=== PATIENT | male | born 1960 | race Two or more races ===

== ENCOUNTER 2018-06-24 19:21 | Emergency (ER) | payer OTHER ==
[~2018-06-24] VITALS: Ht 167.6 cm; Wt 54.9 kg
--- NOTE | 2018-06-24 19:32 | NUR ---
SAIDA FROM [facility], PER REPORT PT WAS HAVING "EPISODIC SOB" SENT FOR POSSIBLE RESP INF; FROM [facility] [place]. PT IS NONVERBAL, VSS, ON TRACH. O2 ON 3L, SATTING AT 100%. SKIN WARM, DRY, INTACT. RIGHT ATK AMPUTATION. NO ACUTE SIGNS OF DISTRESS. AWAITING MD ABRAHAM.
--- NOTE | 2018-06-24 19:41 | NUR ---
CALLED [facility], SPOKE TO RHONDA, WILL FAX ALL PAPERWORKS
[2018-06-24 20:36] LABS: BASOPHILS % (AUTO) 0.1 % (0.0-2.0); EOSINOPHILS % (AUTO) 2.2 % (0.0-6.0); HEMATOCRIT 35 % (39-51); HEMOGLOBIN 11.1 g/dL (13.5-17.5); LYMPHOCYTES # (AUTO) 0.5 /CMM (0.8-4.8); LYMPHOCYTES % (AUTO) 5.2 % (20.0-44.0); MEAN CORPUSCULAR HGB CONC 32 g/dl (31.0-36.0); MEAN CORPUSCULAR VOLUME 107 fL (80-96); MONOCYTES # (AUTO) 0.9 /CMM (0.1-1.30); MONOCYTES % (AUTO) 8.7 % (2.0-12.0); NEUTROPHILS # (AUTO) 8.3 /CMM (1.8-8.9); NEUTROPHILS % (AUTO) 83.8 % (43.0-81.0); PLATELET COUNT (AUTO) 191 /CMM (150-450); RED BLOOD CELL COUNT(AUTO) 3.25 MIL/uL (4.5-6.0); WHITE BLOOD COUNT (AUTO) 9.9 K/uL (4.3-11.0)
[2018-06-24 20:50] LABS: CARBON DIOXIDE 24 mmol/L (21-32); CHLORIDE 102 mmol/L (98-107); GLUCOSE 150 mg/dL (74-106); POTASSIUM 2.9 mmol/L (3.5-5.1); SODIUM SERUM 139 mmol/L (136-145); UREA NITROGEN, BLOOD 6 mg/dL (7-18)
[2018-06-24 20:57] LABS: ALANINE AMINOTRANSFERASE 39 U/L (12-78); ALBUMIN 2.1 g/dL (3.4-5.0); ALKALINE PHOSPHATASE 452 U/L (46-116); ASPARTATE AMINOTRANSFERASE 27 U/L (15-37); BILIRUBIN,DIRECT 0.1 mg/dL (0.0-0.2); BILIRUBIN,TOTAL 0.4 mg/dL (0.2-1.0); LIPASE 126 U/L (73-393)
--- NOTE | 2018-06-24 21:05 | NUR ---
BED LOW, RAILS UP, PT MADE COMFORTABLE POSSIBLE
--- NOTE | 2018-06-24 21:19 | NUR ---
CALLED [facility] TO ARRANGE A BLS TRANSPORT BACK TO [facility]. WAS GIVEN A MANAGER DEMAND TIME OF [id number] TRIP#: [id number]
[2018-06-24] MEDS ORDERED: POTASSIUM CHLORIDE 20 MEQ TAB.PRT.SR PO ONE (21:30)
--- NOTE | 2018-06-24 22:17 | NUR ---
VERBAL ORDERS PER DR POON FOR POTASSIUM CL PKT [id number]
[2018-06-24] MEDS ORDERED: POTASSIUM CHLORIDE 20 MEQ POWDER PACKET ONE (22:19)
[2018-06-24] MEDS ORDERED: POTASSIUM CHLORIDE 20 MEQ POWDER PACKET GT ONE (22:30)
--- NOTE | 2018-06-24 22:40 | NUR ---
MEDICATION GIVEN VIA GTUBE. PT KARLO WELL
--- NOTE | 2018-06-24 22:56 | NUR ---
Patient is resting comfortably in bed with eyes closed. Easily aroused. VSS
--- NOTE | 2018-06-24 23:51 | NUR ---
REPORT GIVEN TO GLORIA SHIPLEY AT [facility] AND [facility]
--- NOTE | 2018-06-24 23:55 | NUR ---
IV removed. Catheter intact and site benign. Pressure and 4x4 applied to site. No bleeding noted.
--- NOTE | 2018-06-25 00:23 | NUR ---
[facility] REFUSED TO TRANSPORT DUE TO PROTOCOL FOR RR > 24. WILL CALL FOR [facility] TRANSPORT
--- NOTE | 2018-06-25 01:30 | NUR ---
PT RESTING COMFORTABLY, NO SIGNS OF DISTRESS
--- NOTE | 2018-06-25 02:56 | NUR ---
SUCTIONED PT AND TUBING. PT IS RESTING, NO SIGNS OF ACUTE DISTRESS. VSS.
--- NOTE | 2018-06-25 03:55 | NUR ---
CALLED [facility] FOR BLS TRANSPORT BACK TO [facility]. ETA OF 8043 TRIP#: [id number]
--- NOTE | 2018-06-25 04:32 | NUR ---
REPORT GIVEN TO [facility]
[2018-06-25 04:47] VITALS: BP 119/74
== END 2018-06-25 04:52 ==
LOC: ER 19:27
DX: G93.40 Encephalopathy, unspecified (principal); I12.0 Hypertensive chronic kidney disease with stage 5 chronic kidney disease or end stage renal disease; E11.22 Type 2 diabetes mellitus with diabetic chronic kidney disease; N18.6 End stage renal disease; E87.6 Hypokalemia; J06.9 Acute upper respiratory infection, unspecified; I73.9 Peripheral vascular disease, unspecified; I48.91 Unspecified atrial fibrillation; I25.2 Old myocardial infarction; J44.9 Chronic obstructive pulmonary disease, unspecified; J96.10 Chronic respiratory failure, unspecified whether with hypoxia or hypercapnia; K21.9 Gastro-esophageal reflux disease without esophagitis; D64.9 Anemia, unspecified; Z86.73 Personal history of transient ischemic attack (TIA), and cerebral infarction without residual deficits; Z99.2 Dependence on renal dialysis; Z89.611 Acquired absence of right leg above knee; Z98.890 Other specified postprocedural states; Z88.6 Allergy status to analgesic agent; Z87.01 Personal history of pneumonia (recurrent)
CPT/HCPCS: 36415; 71045; 80048; 80076; 83690; 84484; 85025; 85730; 87040; 87081; 87804 ×2; 93005; 99284; A4606; Z7610; 87400

== ENCOUNTER 2018-08-26 16:42 | Inpatient (IN) | payer OTHER ==
[~2018-08-26] VITALS: Ht 162.6 cm; Wt 59.0 kg
--- NOTE | 2018-08-26 16:42 | NUR ---
SAIDA FROM [facility] C/O LOW BP, DIALYZED FOR 1HR OUT OF 3 HRS BP=84/62 POWER CHISEL OPERATOR, TO ER BED 4, HOOKED TO MONITOR, CHANGED TO RT TIMO AT BEDSIDE, DR POON AT BEDSIDE
[2018-08-26] MEDS ORDERED: IV NS 0.9% 500 ML BAG IV ONE (17:00)
[2018-08-26 17:04] VITALS: BP 107/72
--- NOTE | 2018-08-26 17:09 | NUR ---
[facility] SIZE 8 PORTEX WITH PARAMETERS BELOW PER RT TRANSPORTER: AC 10 VT 500 FIO2 40% PEEP +5 VENT PLUGGED INTO RED OUTLET WITH ALARMS ON AND FUNCTIONING. BREATH SOUNDS CLEAR BILATERAL. AMBU BAG + SPARE TRACH @ BEDSIDE. Addendum: 08/26/18 at 1712 by LOUIS BECK RT Amended: Links added.
[2018-08-26 17:14] LABS: BASOPHILS % (AUTO) 0.2 % (0.0-2.0); EOSINOPHILS % (AUTO) 0.1 % (0.0-6.0); HEMATOCRIT 43 % (39-51); HEMOGLOBIN 13.4 g/dL (13.5-17.5); LYMPHOCYTES # (AUTO) 0.9 /CMM (0.8-4.8); LYMPHOCYTES % (AUTO) 4.3 % (20.0-44.0); MEAN CORPUSCULAR HGB CONC 31 g/dl (31.0-36.0); MEAN CORPUSCULAR VOLUME 106 fL (80-96); MONOCYTES # (AUTO) 2.2 /CMM (0.1-1.30); MONOCYTES % (AUTO) 10.6 % (2.0-12.0); NEUTROPHILS # (AUTO) 17.8 /CMM (1.8-8.9); NEUTROPHILS % (AUTO) 84.8 % (43.0-81.0); PLATELET COUNT (AUTO) 365 /CMM (150-450); RED BLOOD CELL COUNT(AUTO) 4.06 MIL/uL (4.5-6.0)
[2018-08-26 17:50] LABS: ALANINE AMINOTRANSFERASE 24 U/L (12-78); ALBUMIN 2.4 g/dL (3.4-5.0); ALKALINE PHOSPHATASE 329 U/L (46-116); ASPARTATE AMINOTRANSFERASE 22 U/L (15-37); BILIRUBIN,DIRECT 0.1 mg/dL (0.0-0.2); BILIRUBIN,TOTAL 0.3 mg/dL (0.2-1.0); CALCIUM, SERUM 9.1 mg/dL (8.5-10.1); CARBON DIOXIDE 21 mmol/L (21-32); CHLORIDE 99 mmol/L (98-107); CREATININE 3.3 mg/dL (0.6-1.3); LIPASE 101 U/L (73-393); POTASSIUM 3.4 mmol/L (3.5-5.1); SODIUM SERUM 135 mmol/L (136-145); TOTAL PROTEIN, SERUM 7.5 g/dL (6.4-8.2); UREA NITROGEN, BLOOD 79 mg/dL (7-18)
[2018-08-26 17:52] LABS: GLUCOSE 428 mg/dL (74-106)
[2018-08-26] MEDS ORDERED: INSULIN ASPART/LISPRO 100 UNIT/ML CARTRIDGE SQ STA ×2 (17:52→18:27)
[2018-08-26] MEDS ORDERED: PIPERACILLIN /TAZOBACTAM 3.375 G in IV D5W 50 ML IV ONE (18:00)
[2018-08-26 18:07] LABS: LYMPHOCYTES % (MANUAL) 14 % (16-48); MONOCYTES % (MANUAL) 10 % (0-11.0); NEUTROPHILS % (MANUAL) 76 (42-76)
--- NOTE | 2018-08-26 18:25 | NUR ---
RECHECKED TK=[id number], MADE MD AWARE, RECEIVED VERBAL ORDER OF HUMALOG 10UNITS.
--- NOTE | 2018-08-26 19:01 | NUR ---
RECHECKED DM=727, ERROR OF ACCEPTING RESULT, RECHECKED BS RIGHT AFTER WITH RESULT OF 362. MADE MD AWARE.
[2018-08-26 19:12] VITALS: BP 103/68
[2018-08-26] MEDS ORDERED: ASCO500T10 GT (19:19)
[2018-08-26] MEDS ORDERED: HYDR-4384 GT (19:19)
[2018-08-26] MEDS ORDERED: ATOR40TA GT (19:19)
[2018-08-26] MEDS ORDERED: NA P133E RC (19:19)
[2018-08-26] MEDS ORDERED: FERR220S18 GT (19:19)
[2018-08-26] MEDS ORDERED: ACET325T53 GT (19:19)
[2018-08-26] MEDS ORDERED: MAGN2400 GT (19:19)
[2018-08-26] MEDS ORDERED: OMEP40CA37 GT (19:19)
[2018-08-26] MEDS ORDERED: LEVE100S2 GT (19:19)
[2018-08-26] MEDS ORDERED: METO50TA16 GT (19:19)
[2018-08-26] MEDS ORDERED: INSU100V10 SQ (19:19)
[2018-08-26] MEDS ORDERED: BACI1TAB3 GT (19:19)
[2018-08-26] MEDS ORDERED: LOSA25TA27 GT (19:19)
[2018-08-26] MEDS ORDERED: AMLO5TAB9 GT (19:19)
[2018-08-26] MEDS ORDERED: LEVO100T9 GT (19:19)
[2018-08-26] MEDS ORDERED: FOLI0.8T2 GT (19:19)
[2018-08-26] MEDS ORDERED: INSU100V27 SQ (19:19)
[2018-08-26] MEDS ORDERED: BISA10SU61 RC (19:19)
[2018-08-26] MEDS ORDERED: CHLO473M3 MM (19:19)
[2018-08-26] MEDS ORDERED: CLON0.1T GT (19:19)
[2018-08-26] MEDS ORDERED: ONDA4TAB10 GT (19:19)
[2018-08-26] MEDS ORDERED: ZINC220C8 GT (19:20)
[2018-08-26] MEDS ORDERED: Z GUARD REMEDY 2 OZ OINT TP PRN (19:30)
[2018-08-26] MEDS ORDERED: ACETAMINOPHEN 325 MG TABLET PO PRN (19:30)
[2018-08-26] MEDS ORDERED: ONDANSETRON HCL/PF 4 MG/2 ML VIAL IVP PRN (19:30)
[2018-08-26] MEDS ORDERED: HYDROCODONE/APAP 5/325MG 1 EACH TABLET PO PRN (19:30)
[2018-08-26] MEDS ORDERED: MAG HYDROX/AL HYDROX/SIMETH 30 ML UDC PO PRN (19:30)
[2018-08-26] MEDS ORDERED: IV D5/ 0.9% NACL 1,000 ML IV PRN (19:30)
[2018-08-26] MEDS ORDERED: DEXTROSE 50%-WATER 50 ML DISP.SYRIN IV PRN (19:30)
[2018-08-26] MEDS ORDERED: MAGNESIUM HYDROXIDE 30 ML UDC PO PRN (19:30)
--- NOTE | 2018-08-26 19:30 | NUR ---
REPORT GIVEN TO AUSTEN CASTRO FOR RIVERA
--- NOTE | 2018-08-26 19:59 | NUR ---
Report given to MARIELENA Tamayo RN for RIVERA.
[2018-08-26] MEDS ORDERED: VANCOMYCIN 500 MG in IV D5W 100 ML IV PRN (20:00)
[2018-08-26] MEDS ORDERED: FEE PK DOSING 1 MIN EA MC ONE (20:12)
[2018-08-26] MEDS ORDERED: INSULIN DETEMIR 100 UNIT/ML CARTRIDGE SQ SCH (21:00)
[2018-08-26] MEDS ORDERED: VANCOMYCIN 1 GM in IV D5W 250 ML IV ONE (21:00)
[2018-08-26 21:40] VITALS: BP 106/69
--- NOTE | 2018-08-26 21:40 | NUR ---
NEGATIVE NOTCHERINJURY PREVENTION COORDINATOR NOTES Received patient 58-year-old male from ER via gurney assisted by 3 check scaler and 1 RT. Admitted to Tele 324-2 under the service of Dr. Michael Campos due to low bp. Patient is alert, non verbal. On Vent AC 10 TV 500 FiO2 40% PEEP 5, saturating 100% no SOB/respiratory distress noted. On tele monitor with sinus tach 107. No discomfort noted at this time. Admission routine done. Skin assessment done, photo taken and documented. Patient no belongings noted. Kept on bed clean, dry and comfortable. Kept bed low, locked, siderails up X 3. Admission ordered noted, and carried out. Will continue to monitor accordingly.
[2018-08-26 22:15] VITALS: BP 106/69
[2018-08-26] MEDS: LEVETIRACETAM SOL (5 ML) 100 MG/ML UDC GT SCH (22:52)
[2018-08-26] MEDS: ATORVASTATIN 40 MG TABLET GT SCH (22:52)
[2018-08-26] MEDS: INSULIN GLARGINE, 100 UNIT/ML CARTRIDGE SQ SCH (22:54)
--- NOTE | 2018-08-26 23:00 | NUR ---
MOLDING ASSOCIATE NOTES 2139 PATIENT NOTED WITH SMALL BLACK VOMITUS. SUCTIONED PRN. KEPT PATIENT CLEAN. KEPT HOB ELEVATED. NO FURTHER VOMITING NOTED. PATIENT REMAINED STABLE AT THIS TIME.
[2018-08-26] MEDS: ZOLPIDEM TARTRATE 5 MG TABLET PO PRN (23:03)
[2018-08-27] VITALS (7 sets, daily range): BP systolic 100–144; BP diastolic 69–87
[2018-08-27] MEDS ORDERED: NEPRO 1,000 ML BOTTLE GT SCH (00:30)
[2018-08-27] MEDS: BLOOD SUGAR DIAGNOSTIC 1 EACH STRIP IN SCH ×5 (00:32→23:53)
[2018-08-27] MEDS: INSULIN REGULAR, HUMAN 100 UNIT/ML 3 ML VIAL SQ PRN ×5 (01:18→23:58)
[2018-08-27] MEDS: IV NS 0.9% 1,000 ML IV PRN ×2 (01:28→17:32)
[2018-08-27] MEDS: PIPERACILLIN /TAZOBACTAM 2.25 G in IV D5W 50 ML IV SCH ×3 (01:30→17:25)
--- NOTE | 2018-08-27 01:32 | NUR ---
BANDING MACHINE OPERATOR NOTES Checked blood sugar, repeated twice, 449. Notified MD Taz You with orders noted and carried out. Will continue to monitor patient accordingly.
[2018-08-27 06:17] LABS: BASOPHILS % (AUTO) 0.4 % (0.0-2.0); EOSINOPHILS % (AUTO) 0.4 % (0.0-6.0); HEMATOCRIT 35 % (39-51); HEMOGLOBIN 11.1 g/dL (13.5-17.5); LYMPHOCYTES # (AUTO) 0.9 /CMM (0.8-4.8); MEAN CORPUSCULAR HGB CONC 31 g/dl (31.0-36.0); MEAN CORPUSCULAR VOLUME 104 fL (80-96); MONOCYTES # (AUTO) 1.6 /CMM (0.1-1.30); MONOCYTES % (AUTO) 12.7 % (2.0-12.0); NEUTROPHILS # (AUTO) 10.2 /CMM (1.8-8.9); NEUTROPHILS % (AUTO) 79.5 % (43.0-81.0); PLATELET COUNT (AUTO) 284 /CMM (150-450); RED BLOOD CELL COUNT(AUTO) 3.38 MIL/uL (4.5-6.0); WHITE BLOOD COUNT (AUTO) 12.9 K/uL (4.3-11.0)
[2018-08-27 06:30] LABS: THYROID STIMULATING HORMONE 0.946 uIU/mL (0.358-3.74)
[2018-08-27 06:31] LABS: CALCIUM, SERUM 8.6 mg/dL (8.5-10.1); MAGNESIUM 2.1 mg/dL (1.8-2.4); PHOSPHORUS 3.3 mg/dL (2.5-4.9); POTASSIUM 3.3 mmol/L (3.5-5.1)
--- NOTE | 2018-08-27 07:13 | NUR ---
SULFATE DRIER MACHINE OPERATOR CLOSING NOTES Patient intermittently asleep on Castano's position on bed. On Vent, tolerating well, no SOB/respiratory distress noted. Suctioned regularly and PRN, scant thick yellow secretions noted on the trach, black/dark green on the mouth and oozing on the trach site. With patent peripheral IV line RFA G#20 with NS infusing well as ordered. With BUN of 106 as notified by lab. Patient for nepro consult today. 0600am BS 354 - 15units insulin given per sliding scale as ordered. Patient remained stable. No further episode of vomiting noted. All due meds given as ordered. All nursing needs attended. Kept on bed clean, dry and comfortable. Call light at bedside. Endorsed to the next shift.
--- NOTE | 2018-08-27 07:30 | NUR ---
LINE THERAPIST. PT RECEIVED EYES OPEN TO LITE PAIN. PT WITH TRACH AND VENT, TOLERATING WELL WITHOUT DISTRESS, VENT PLUGGED TO RED PLUG AND AMBU BACK AT BEDSIDE, ALARMS ON, SETTINGS RV WITH RT AND PT SUCTIONED. PT WITHOUT OBVIOUS DISTRESS OR DISCOMFORT. PT SKIN MOIST. PT REPOSITIONED AND OFFLOADED. PT WITH IVC AT R FA INTACT AND OPERATIONAL. G TUBE INTACT AND OPERATIONAL WITH GTF PER RX, <5CC RESIDUALS. PT BED IN LOWEST LOCKED POSITION WITH HANDRAILSX4 AND HOB ELEVATED. WILL CONTINUE POC.
--- NOTE | 2018-08-27 07:40 | NUR ---
RT Pt received with a Portex 8 trach on the vent with noted settings. Pt is awake but does not follow commands. Vent alarms are set and audible with BVM by bedside. PATENT CLERK cuff pressure noted. Vent is plugged into red outlet. Sx'd moderate thick pale yellow secretions. No respiratory distress noted at this time, will continue to monitor. Addendum: 08/27/18 at 1204 by DENIS DELUNA RT Amended: Links added.
--- NOTE | 2018-08-27 08:30 | NUR ---
PT WITH EPISODE OF DARK GREEN/BLACK VOMITUS FROM AROUND TRACH TUBE AT NECK. PT TRACH SUCTIONED WITH SMALL AMOUNT FROTHY WHITE SECRETIONS. ORAL CARE COMPLETED. HOB ELEVATED. RT ASSESSED AND NAD.
[2018-08-27] MEDS: ASCORBIC ACID 500 MG TABLET GT SCH (09:18)
[2018-08-27] MEDS: LEVOTHYROXINE SODIUM 100 MCG TABLET GT SCH (09:19)
[2018-08-27] MEDS: PANTOPRAZOLE 40 MG TABLET.DR PO SCH (09:19)
[2018-08-27] MEDS: LEVETIRACETAM SOL (5 ML) 100 MG/ML UDC GT SCH ×2 (09:19→21:04)
[2018-08-27] MEDS: INSULIN GLARGINE, 100 UNIT/ML CARTRIDGE SQ SCH ×2 (09:37→21:08)
--- NOTE | 2018-08-27 16:45 | NUR ---
COMPUTER NETWORKING INSTRUCTOR ADJUNCT. PT WITH 1X LARGE, LOOSE JET BLACK STOOL. MD JOHNSON NOTIFIED, STAT CBC REQUESTED AND OB STOOL.ORDERS PLACED.
[2018-08-27] MEDS: LACTOBACILLUS RHAMNOSUS GG 1 EACH CAP.SPRINK GT SCH (17:25)
[2018-08-27 17:45] LABS: BASOPHILS # (AUTO) 0.1 /CMM (0.0-0.2); BASOPHILS % (AUTO) 0.8 % (0.0-2.0); EOSINOPHILS % (AUTO) 0.9 % (0.0-6.0); HEMATOCRIT 34 % (39-51); HEMOGLOBIN 11.1 g/dL (13.5-17.5); LYMPHOCYTES % (AUTO) 8.6 % (20.0-44.0); MEAN CORPUSCULAR HGB CONC 32 g/dl (31.0-36.0); MEAN CORPUSCULAR VOLUME 104 fL (80-96); MONOCYTES # (AUTO) 1.7 /CMM (0.1-1.30); NEUTROPHILS # (AUTO) 9.1 /CMM (1.8-8.9); NEUTROPHILS % (AUTO) 75.7 % (43.0-81.0); PLATELET COUNT (AUTO) 244 /CMM (150-450); RED BLOOD CELL COUNT(AUTO) 3.32 MIL/uL (4.5-6.0)
--- NOTE | 2018-08-27 18:27 | NUR ---
NUISANCE ANIMAL DAMAGE CONTROL AGENT. TELE SR 92. PT REMAINS OBTUNDED, TRACH AND VENT DEPENDENT AND TOLERATING WELL WITHOUT DISTRESS, VENT PLUGGED TO RED PLUG AND AMBU BACK AT BEDSIDE, ALARMS ON. PT WITHOUT OBVIOUS DISTRESS OR DISCOMFORT. PT REPOSITIONED AND OFFLOADED Q2HR OR SOONER DURING SHIFT. PT WITH IVC AT R FA INTACT AND OPERATIONAL. G TUBE INTACT AND OPERATIONAL WITH GTF HELD AT THIS TIME PER RX, <5CC RESIDUALS DURING SHIFT. PT BED IN LOWEST LOCKED POSITION WITH HANDRAILSX4 AND HOB ELEVATED. WILL ENDORSE TO NIGHT NURSE AT BEDSIDE FOR RIVERA.
--- NOTE | 2018-08-27 19:10 | NUR ---
ACCOUNTING CONSULTANT OPENING NOTES PATIENT RECEIVED IN BED, OBTUNDED, TRACH AND VENT DEPENDENT AND TOLERATING WELL WITHOUT DISTRESS, VENT PLUGGED TO RED PLUG AND AMBU BACK AT BEDSIDE, ALARMS ON. PATIENT WITHOUT OBVIOUS DISTRESS OR DISCOMFORT. VENT SETTINGS: AC- 10, TV- 500, FiO2-30%, PEEP- 5. G TUBE HELD AT THIS TIME, FEEDING WILL BE STARTED AT 12AM. SAFETY MEASURES IN PLACE; BED IN LOWEST LOCKED POSITION WITH HANDRAILSX4 AND HOB ELEVATED. PATIENT STABLE ENDORSED BY THE MORNING RN. WILL CONTINUE TO MONITOR ACCORDINGLY
[2018-08-27 19:32] LABS: OCCULT BLOOD STOOL POSITIVE (NEGATIVE)
[2018-08-27] MEDS: ATORVASTATIN 40 MG TABLET GT SCH (21:04)
[2018-08-27] MEDS: ZOLPIDEM TARTRATE 5 MG TABLET PO PRN (23:20)
[2018-08-27] MEDS: NEPRO 1,000 ML BOTTLE GT SCH (23:53)
[2018-08-28] VITALS (9 sets, daily range): BP systolic 127–152; BP diastolic 74–81
--- NOTE | 2018-08-28 01:15 | NUR ---
COAT FINISHER NOTES Patient moved his bowels, medium, black stool. Wound care done.
[2018-08-28] MEDS: PIPERACILLIN /TAZOBACTAM 2.25 G in IV D5W 50 ML IV SCH ×3 (01:30→17:41)
--- NOTE | 2018-08-28 02:00 | NUR ---
PULP GRINDER NOTES Residuals checked- 0 mL
--- NOTE | 2018-08-28 05:35 | NUR ---
COMMUNICATIONS INSTRUCTOR NOTES Patient moved his bowels, small, jet black stool.
[2018-08-28] MEDS: BLOOD SUGAR DIAGNOSTIC 1 EACH STRIP IN SCH ×3 (05:54→17:23)
[2018-08-28] MEDS: INSULIN REGULAR, HUMAN 100 UNIT/ML 3 ML VIAL SQ PRN ×3 (05:59→17:24)
--- NOTE | 2018-08-28 06:57 | NUR ---
CODE ENFORCEMENT SUPERVISOR CLOSING NOTES PATIENT IN BED, OBTUNDED, TRACH AND VENT DEPENDENT AND TOLERATING WELL WITHOUT DISTRESS. VENT PLUGGED TO RED PLUG AND AMBU BACK AT BEDSIDE, ALARMS ON. PATIENT WITHOUT OBVIOUS DISTRESS OR DISCOMFORT. VENT SETTINGS: AC- 10, TV- 500, FiO2-30%, PEEP- 5. G-TUBE RUNNING AT 55ML/HR, TOLERATING WELL WITH NO RESIDUALS. TELE MONITOR IN PLACE, CURRENT READING SINUS RHYTHM 85. SAFETY MEASURES IN PLACE; BED IN LOWEST LOCKED POSITION WITH HANDRAILSX4 AND HOB ELEVATED. WILL ENDORSE RIVERA TO ONCOMING RN
[2018-08-28 07:05] LABS: BASOPHILS # (AUTO) 0.1 /CMM (0.0-0.2); BASOPHILS % (AUTO) 0.6 % (0.0-2.0); EOSINOPHILS % (AUTO) 1.6 % (0.0-6.0); HEMATOCRIT 35 % (39-51); HEMOGLOBIN 11.4 g/dL (13.5-17.5); LYMPHOCYTES % (AUTO) 11.2 % (20.0-44.0); MEAN CORPUSCULAR HGB CONC 32 g/dl (31.0-36.0); MEAN CORPUSCULAR VOLUME 105 fL (80-96); MONOCYTES # (AUTO) 1.3 /CMM (0.1-1.30); MONOCYTES % (AUTO) 14.4 % (2.0-12.0); NEUTROPHILS # (AUTO) 6.7 /CMM (1.8-8.9); NEUTROPHILS % (AUTO) 72.2 % (43.0-81.0); PLATELET COUNT (AUTO) 213 /CMM (150-450); RED BLOOD CELL COUNT(AUTO) 3.38 MIL/uL (4.5-6.0); WHITE BLOOD COUNT (AUTO) 9.3 K/uL (4.3-11.0)
[2018-08-28] MEDS: IV NS 0.9% 1,000 ML IV PRN (07:22)
[2018-08-28 07:41] LABS: CALCIUM, SERUM 8.8 mg/dL (8.5-10.1); CREATININE 2.7 mg/dL (0.6-1.3)
--- NOTE | 2018-08-28 07:43 | NUR ---
PSYCHIATRIC SECRETARY NOTES PATIENT RECEIVED RESTING INSIDE ROOM. OBTUNDED. ON VENT/TRACH. VENT PLUGGED TO RED OUTLET. NO ACUTE DISTRESS NOTED AT THIS TIME. PATIENT CALM AND RELAXED. NO FACIAL GRIMACE NOTED. ONGOING GTF. MAINTAINED ASPIRATION PRECAUTION, MAINTAINED HOB ELEVATION AT 45. CONTINUE WITH TELEMETRY, NSR 87. WILL CONTINUE TO MONITOR. BED LOCKED AND IN LOW POSITION. BILATERAL UPPER SIDE RAILS UP AND LOCKED. CALL LIGHT WITHIN EASY REACH
[2018-08-28] MEDS: LACTOBACILLUS RHAMNOSUS GG 1 EACH CAP.SPRINK GT SCH ×2 (08:58→16:05)
[2018-08-28] MEDS: PANTOPRAZOLE 40 MG TABLET.DR PO SCH (08:59)
[2018-08-28] MEDS: LEVOTHYROXINE SODIUM 100 MCG TABLET GT SCH (08:59)
[2018-08-28] MEDS: ASCORBIC ACID 500 MG TABLET GT SCH (08:59)
[2018-08-28] MEDS: LEVETIRACETAM SOL (5 ML) 100 MG/ML UDC GT SCH ×2 (09:00→21:28)
[2018-08-28] MEDS: INSULIN GLARGINE, 100 UNIT/ML CARTRIDGE SQ SCH ×2 (09:22→21:33)
[2018-08-28] MEDS ORDERED: POTASSIUM CHLORIDE 20 MEQ TAB.PRT.SR PO ONE (12:00)
--- NOTE | 2018-08-28 14:11 | NUR ---
RT Pt received with a Portex 8 trach on the vent with noted settings. Pt is awake but does not follow commands. Vent alarms are set and audible with BVM by bedside. PARTS CLERK PLANT MAINTENANCE cuff pressure noted. Vent is plugged into red outlet. Sx'd moderate thick pale yellow secretions. No respiratory distress noted at this time, will continue to monitor.
--- NOTE | 2018-08-28 15:30 | NUR ---
CLINIC CLERK NOTES S/P HD. 1300 OUT. PATIENT TOLERATED PROCEDURE WELL, NO ACUTE DISTRESS AT THIS TIME. WILL CONTINUE TO MONITOR
[2018-08-28] MEDS ORDERED: VANCOMYCIN 1 GM in IV D5W 250 ML IV ONE (17:00)
--- NOTE | 2018-08-28 18:42 | NUR ---
THEORETICAL PHYSICIST NOTES PATIENT RESTING INSIDE ROOM. OBTUNDED. NO FACIAL GRIMACE OR INDICATION OF PAIN NOTED AT THIS TIME. CONTINUE WITH VENT/TRACH SETTINGS. NO ACUTE DISTRESS AT THIS TIME. IV INTACT AND PATENT. MAINTAINED ASPIRATION PRECAUTIONS. CONTINUE WITH TELEMETRY, DATA COMMUNICATIONS SOFTWARE CONSULTANT IN PLACE. NSR 90'S. PATIENT KEPT CLEAN, DRY AND COMFORTABLE. ALL NURSING NEEDS ATTENDED AND MET. WILL ENDORSE TO INCOMING SHIFT FOR RIVERA. BED LOCKED AND IN LOW POSITION. BILATERAL UPPER SIDE RAILS UP AND LOCKED. CALL LIGHT WITHIN EASY REACH
--- NOTE | 2018-08-28 19:55 | NUR ---
RN NOTES RECEIVED PATIENT IN BED, OBTUNDED. NO FACIAL GRIMACE OR INDICATION OF PAIN NOTED AT THIS TIME. CONTINUE WITH VENT/TRACH SETTINGS TOLERATING WELL SATING 100%. NO ACUTE DISTRESS AT THIS TIME. IV INTACT AND PATENT. ASPIRATION PRECAUTIONS MAINTAINED. CONTINUE WITH TELEMETRY, MOBILE ENGINEER IN PLACE. NSR 90'S. PATIENT KEPT CLEAN, DRY AND COMFORTABLE. ALL SAFETY MEASURES IN PLACED, BED LOCKED AND IN LOW POSITION. BILATERAL UPPER SIDE RAILS UP AND LOCKED. CALL LIGHT WITHIN EASY REACH. WILL CONTINUE TO MONITOR ACCORDINGLY.
--- NOTE | 2018-08-28 20:24 | NUR ---
RT Pt rec'd with a Portex 8 trach on the vent with noted settings. Pt is awake but does not respond to commands. Vent alarms are set and audible with BVM by bedside. APPLICATION OPERATIONS ENGINEER cuff pressure noted. Vent is plugged into red outlet. Sx'd small thick pale yellow secretions. No respiratory distress noted at this time, will continue to monitor. Addendum: 08/28/18 at 2024 by MILY TOBIN RT Amended: Links added.
[2018-08-28] MEDS: ATORVASTATIN 40 MG TABLET GT SCH (22:29)
[2018-08-29] VITALS: BP 149/87
[2018-08-29] MEDS: BLOOD SUGAR DIAGNOSTIC 1 EACH STRIP IN SCH ×5 (00:52→23:59)
[2018-08-29] MEDS: INSULIN REGULAR, HUMAN 100 UNIT/ML 3 ML VIAL SQ PRN ×4 (00:56→23:55)
[2018-08-29] MEDS: NEPRO 1,000 ML BOTTLE GT SCH (01:16)
[2018-08-29] MEDS: PIPERACILLIN /TAZOBACTAM 2.25 G in IV D5W 50 ML IV SCH ×3 (01:22→17:38)
[2018-08-29 04:00] VITALS: BP 146/68
--- NOTE | 2018-08-29 07:00 | NUR ---
RECEIVED PATIENT IN BED, OBTUNDED. NO INDICATION OF PAIN NOTED AT THIS TIME. CONTINUE WITH VENT/TRACH SETTINGS TOLERATING WELL SATING 100%. NO ACUTE DISTRESS AT THIS TIME. IV INTACT AND PATENT. ASPIRATION PRECAUTIONS MAINTAINED. PT ON TELEMETRY, NSR 81'S. ALL SAFETY MEASURES IN PLACED, BED LOCKED AND IN LOW POSITION. BILATERAL UPPER SIDE RAILS UP AND LOCKED. CALL LIGHT WITHIN EASY REACH. WILL CONTINUE TO MONITOR ACCORDINGLY.
--- NOTE | 2018-08-29 07:20 | NUR ---
RN NOTES ALL NEEDS ATTENDED AND MET, KEPT CLEAN DRY AND COMFORTABLE, VENT SETTINGS TOLERATING WELL, ENDORSED TO AM NURSE FOR CONTINUITY OF CARE.
[2018-08-29 08:00] VITALS: BP 153/85
[2018-08-29 08:04] LABS: BASOPHILS # (AUTO) 0.1 /CMM (0.0-0.2); BASOPHILS % (AUTO) 0.5 % (0.0-2.0); EOSINOPHILS % (AUTO) 1.4 % (0.0-6.0); HEMATOCRIT 37 % (39-51); HEMOGLOBIN 11.6 g/dL (13.5-17.5); LYMPHOCYTES # (AUTO) 1.1 /CMM (0.8-4.8); LYMPHOCYTES % (AUTO) 9.4 % (20.0-44.0); MEAN CORPUSCULAR HGB CONC 32 g/dl (31.0-36.0); MEAN CORPUSCULAR VOLUME 105 fL (80-96); MONOCYTES # (AUTO) 1.2 /CMM (0.1-1.30); MONOCYTES % (AUTO) 10.3 % (2.0-12.0); NEUTROPHILS # (AUTO) 8.8 /CMM (1.8-8.9); NEUTROPHILS % (AUTO) 78.4 % (43.0-81.0); RED BLOOD CELL COUNT(AUTO) 3.51 MIL/uL (4.5-6.0); WHITE BLOOD COUNT (AUTO) 11.2 K/uL (4.3-11.0)
[2018-08-29] MEDS: LEVOTHYROXINE SODIUM 100 MCG TABLET GT SCH (08:34)
[2018-08-29] MEDS: ASCORBIC ACID 500 MG TABLET GT SCH (08:34)
[2018-08-29] MEDS: PANTOPRAZOLE 40 MG TABLET.DR PO SCH (08:35)
[2018-08-29] MEDS: LACTOBACILLUS RHAMNOSUS GG 1 EACH CAP.SPRINK GT SCH ×2 (08:35→17:39)
[2018-08-29] MEDS: LEVETIRACETAM SOL (5 ML) 100 MG/ML UDC GT SCH ×2 (08:35→21:31)
[2018-08-29] MEDS: INSULIN GLARGINE, 100 UNIT/ML CARTRIDGE SQ SCH ×2 (08:37→21:41)
[2018-08-29 08:49] LABS: PLATELET COUNT (AUTO) 210 /CMM (150-450)
[2018-08-29 10:35] LABS: CALCIUM, SERUM 8.8 mg/dL (8.5-10.1); CREATININE 2.4 mg/dL (0.6-1.3); POTASSIUM 3.4 mmol/L (3.5-5.1)
--- NOTE | 2018-08-29 12:09 | NUR ---
PT REC'D ON [facility] VENT ON NOTED SETTINGS CHARTED. NO RESP DISTRESS OR SOB NOTED. TRACH PATENT AND SECURED. SX'D FOR THICK MOD AMT OF PALE YELLOW SECRETIONS. ALARMS ARE SET AND AUDIBLE. VENT PLUGGED INTO RED OUTLET. AMBU BAG BEDSIDE. WILL CONTINUE TO MONITOR. Addendum: 08/29/18 at 1211 by LOWELL GARNER RT Amended: Links added.
[2018-08-29 16:00] VITALS: BP 170/89
--- NOTE | 2018-08-29 19:00 | NUR ---
PATIENT IN BED, OBTUNDED. NO INDICATION OF PAIN NOTED AT THIS TIME. CONTINUE WITH VENT/TRACH SETTINGS TOLERATING WELL SATING 100%. NO ACUTE DISTRESS AT THIS TIME. IV INTACT AND PATENT. ASPIRATION PRECAUTIONS MAINTAINED. FEEDING STOPPED AT 1600 ORDERED.ALL NEEDS ATTENDED AND PT KEPT CLEAN AND DRY , WOUND DRESSING CHANGED. ALL SAFETY MEASURES IN PLACED, BED LOCKED AND IN LOW POSITION. BILATERAL UPPER SIDE RAILS UP AND LOCKED. CALL LIGHT WITHIN EASY REACH.
--- NOTE | 2018-08-29 19:55 | NUR ---
RN NOTES RECEIVED PATIENT IN BED, OBTUNDED. NO FACIAL GRIMACE OR INDICATION OF PAIN NOTED AT THIS TIME. CONTINUE WITH VENT/TRACH SETTINGS TOLERATING WELL SATING 100%. NO ACUTE DISTRESS AT THIS TIME. IV INTACT AND PATENT. ASPIRATION PRECAUTIONS MAINTAINED. CONTINUE WITH TELEMETRY, GROUP ROOMS COORDINATOR IN PLACE. NSR 90'S. PATIENT KEPT CLEAN, DRY AND COMFORTABLE. ALL SAFETY MEASURES IN PLACED, BED LOCKED AND IN LOW POSITION. BILATERAL UPPER SIDE RAILS UP AND LOCKED. CALL LIGHT WITHIN EASY REACH. WILL CONTINUE TO MONITOR ACCORDINGLY.
[2018-08-29 20:00] VITALS: BP 166/78
[2018-08-29] MEDS: ATORVASTATIN 40 MG TABLET GT SCH (21:31)
[2018-08-30] VITALS: BP 147/79
[2018-08-30] MEDS: PIPERACILLIN /TAZOBACTAM 2.25 G in IV D5W 50 ML IV SCH ×3 (02:02→17:33)
[2018-08-30 04:00] VITALS: BP 141/77
[2018-08-30 04:14] VITALS: BP 141/77
[2018-08-30] MEDS: BLOOD SUGAR DIAGNOSTIC 1 EACH STRIP IN SCH ×4 (06:04→23:57)
[2018-08-30] MEDS: INSULIN REGULAR, HUMAN 100 UNIT/ML 3 ML VIAL SQ PRN ×2 (06:10→17:39)
--- NOTE | 2018-08-30 07:14 | NUR ---
RN NOTES ALL NEEDS ATTENDED AND MET, KEPT CLEAN DRY AND COMFORTABLE, VENT SETTINGS TOLERATING WELL, ENDORSED TO AM NURSE FOR CONTINUITY OF CARE.
[2018-08-30 08:38] LABS: BASOPHILS % (AUTO) 0.4 % (0.0-2.0); HEMATOCRIT 35 % (39-51); HEMOGLOBIN 11.6 g/dL (13.5-17.5); LYMPHOCYTES # (AUTO) 0.8 /CMM (0.8-4.8); LYMPHOCYTES % (AUTO) 7.4 % (20.0-44.0); MEAN CORPUSCULAR HGB CONC 33 g/dl (31.0-36.0); MEAN CORPUSCULAR VOLUME 104 fL (80-96); MONOCYTES % (AUTO) 9.2 % (2.0-12.0); NEUTROPHILS # (AUTO) 8.5 /CMM (1.8-8.9); WHITE BLOOD COUNT (AUTO) 10.5 K/uL (4.3-11.0)
[2018-08-30] MEDS: LACTOBACILLUS RHAMNOSUS GG 1 EACH CAP.SPRINK GT SCH ×2 (08:58→17:19)
[2018-08-30] MEDS: ASCORBIC ACID 500 MG TABLET GT SCH (08:58)
[2018-08-30] MEDS: LEVETIRACETAM SOL (5 ML) 100 MG/ML UDC GT SCH ×2 (08:58→21:53)
[2018-08-30] MEDS: LEVOTHYROXINE SODIUM 100 MCG TABLET GT SCH (08:58)
[2018-08-30] MEDS: INSULIN GLARGINE, 100 UNIT/ML CARTRIDGE SQ SCH ×2 (08:59→21:58)
[2018-08-30] MEDS: PANTOPRAZOLE 40 MG TABLET.DR PO SCH (09:01)
[2018-08-30 09:09] LABS: CALCIUM, SERUM 8.8 mg/dL (8.5-10.1); CREATININE 2.7 mg/dL (0.6-1.3); POTASSIUM 3.2 mmol/L (3.5-5.1)
[2018-08-30 09:58] LABS: PLATELET COUNT (AUTO) 168 /CMM (150-450)
--- NOTE | 2018-08-30 13:30 | NUR ---
CALLED TO FACILITY FOR REPORT. GLORIA LOPEZ REFUSED TO TAKE A REPORT , STATED THAT FACILITY DID NOT EXPEKT THIS PATIENT TODAY.
--- NOTE | 2018-08-30 13:40 | NUR ---
CALL TO [employer] STEAM PLANT CONTROL ROOM OPERATOR TO INFORM FACILITY CANNOT ACCEPT THE PT TODAY.
[2018-08-30 16:09] VITALS: BP 153/76
--- NOTE | 2018-08-30 19:24 | NUR ---
NO CHANGES DURING THE SHIFT. PT READY FOR D/C , WILL ENDORSE TO NEXT SHIFT FOR RIVERA.
--- NOTE | 2018-08-30 19:35 | NUR ---
RN NOTES RECEIVED PATIENT IN BED, OBTUNDED. NO FACIAL GRIMACE OR INDICATION OF PAIN NOTED AT THIS TIME. CONTINUE WITH VENT/TRACH SETTINGS TOLERATING WELL SATING 100%. NO ACUTE DISTRESS AT THIS TIME. IV INTACT AND PATENT. ASPIRATION PRECAUTIONS MAINTAINED. CONTINUE WITH TELEMETRY, EXCELSIOR MACHINE FEEDER IN PLACE. NSR 90'S. PATIENT KEPT CLEAN, DRY AND COMFORTABLE. ALL SAFETY MEASURES IN PLACED, BED LOCKED AND IN LOW POSITION. BILATERAL UPPER SIDE RAILS UP AND LOCKED. CALL LIGHT WITHIN EASY REACH. WILL CONTINUE TO MONITOR ACCORDINGLY.
--- NOTE | 2018-08-30 19:47 | NUR ---
RT NOTE PATIENT RECEIVED IN STABLE CONDITION ON MECHANICAL VENT. PATIENT IS TOLERATING CURRENT ORDERED VENT ETTINGS. NO SIGNS OF RESPIRATORY DISTRESS NOTED. TRACH IS PATENT, SECURE AND MIDLINE. MECHANICAL VENT IS PLUGGED INTO RED OUTLET. ALARMS ARE SET AND AUDIBLE. EMERGENCY EQUIPMENT IS AT PATIENT BEDSIDE. WILL CONTINUE TO MONITOR PATIENT Addendum: 08/30/18 at 1948 by KELLEN YEAGER RT Amended: Links added.
[2018-08-30 20:00] VITALS: BP 186/90
--- NOTE | 2018-08-30 20:00 | NUR ---
RN NOTES NOTED ABRASION ON HIS LEFT EAR, PHOTO TAKEN, KEEP AREA CLEAN AND DRY. CONTINUE MONITOR FOR ANY CHANGES.
[2018-08-30 20:11] VITALS: BP 186/90
[2018-08-30] MEDS: ATORVASTATIN 40 MG TABLET GT SCH (21:53)
[2018-08-30] MEDS: NEPRO 1,000 ML BOTTLE GT SCH ×2 (23:58)
[2018-08-31] VITALS (10 sets, daily range): BP systolic 118–245; BP diastolic 57–112
[2018-08-31] MEDS: PIPERACILLIN /TAZOBACTAM 2.25 G in IV D5W 50 ML IV SCH ×3 (01:01→19:13)
[2018-08-31 06:31] LABS: CALCIUM, SERUM 8.9 mg/dL (8.5-10.1)
[2018-08-31] MEDS: BLOOD SUGAR DIAGNOSTIC 1 EACH STRIP IN SCH ×4 (06:51→23:32)
[2018-08-31] MEDS: INSULIN REGULAR, HUMAN 100 UNIT/ML 3 ML VIAL SQ PRN ×4 (07:04→23:43)
--- NOTE | 2018-08-31 07:30 | NUR ---
TRANSFER MACHINE OPERATOR NOTES PT IN BED, AWAKE, NON VERBAL, NO SIGN OF PAIN OR DISTRESS, KEPT WARM AND COMFORTABLE IN BED, CALL LIGHT WITHIN REACH.
--- NOTE | 2018-08-31 07:43 | NUR ---
RN NOTES ALL NEEDS ATTENDED AND MET, KEPT CLEAN DRY AND COMFORTABLE, VENT SETTINGS TOLERATING WELL, ENDORSED TO AM NURSE FOR CONTINUITY OF CARE. FOR DISCHARGE TODAY PLEASE COORDINATE WITH CASE MANAGEMENT.
[2018-08-31] MEDS: LEVETIRACETAM SOL (5 ML) 100 MG/ML UDC GT SCH ×2 (09:18→22:04)
[2018-08-31] MEDS: ASCORBIC ACID 500 MG TABLET GT SCH (09:18)
[2018-08-31] MEDS: PANTOPRAZOLE 40 MG TABLET.DR PO SCH (09:18)
[2018-08-31] MEDS: LACTOBACILLUS RHAMNOSUS GG 1 EACH CAP.SPRINK GT SCH ×2 (09:18→16:24)
[2018-08-31] MEDS: LEVOTHYROXINE SODIUM 100 MCG TABLET GT SCH (09:19)
[2018-08-31] MEDS: INSULIN GLARGINE, 100 UNIT/ML CARTRIDGE SQ SCH ×2 (09:21→22:13)
--- NOTE | 2018-08-31 12:27 | NUR ---
WEB DATABASE DEVELOPER NOTES PT IN BED, AWAKE, NO FACIAL GRIMACING OR MOANING, CALL LIGHT WITHIN REACH, SEEN BY DR. JOHNSON, DISCHARGE ORDER GIVEN, TURNED AND REPOSITIONED Q2 HOURS.
--- NOTE | 2018-08-31 18:59 | NUR ---
LIFE INSURANCE SPECIALIST NOTES PT IN BED, AWAKE, NO SIGN OF PAIN OR DISTRESS, DIALYSIS ONGOING, TOLERATING WELL, VITAL SIGNS STABLE, D/C ORDER GIVEN BY DR. JOHNSON, REPORT GIVEN TO [facility] OF [facility], AWAITING COMPLETION OF DIALYSIS, PM CARE PROVIDED, TURNED AND REPOSITIONED, ALL NEEDS ATTENDED.
--- NOTE | 2018-08-31 19:10 | NUR ---
PUBLICATIONS MANAGER OPENING NOTES RECEIVED PATIENT IN BED AWAKE EYES OPEN OBTUNDED BASELINE, RESPIRATIONS EVEN AND UNLABORED WITH EQUAL RISE AND FALL OF CHEST, ON MECHANICAL VENT , PLUGGED INTO RED EMERGENCY PLUG, AMBU BAG AT BEDSIDE, SUCTION SET UP AT BEDSIDE,AC 10,TV 500,FI02 30% PEEP 5 PORTEX 8, HEAD OF BED ELEVATED FOR ASPIRATION PRECAUTIONS, GTUBE INTACT AND PATENT, FEEDING NEPHRO RUNNING ORDERED, HEMODIALYIS NURSE AT BEDSIDE, CURRENTLY STILL DOING HD, LEFT SUBCLAVIAN AV SHUNT INTACT , DRESSING CLEAN DRY AND INTACT, ON BUTCHER OR SMALLGOODS MAKER SR 91, RIGHT FA #20 G IV SITE INTACT AND PATENT, NO REDNESS, NO INFILTRATION PRESENT. SACRAL AND RIGHT BUTTOCKS WOUNDS DRESSING INTACT. AND CLEAN, GTUBE DRESSING CLEAN, TRACH DRESSING CLEAN, SAFETY PRECAUTIONS IN BED LOW BED AND LOCKED, CALL LIGHT KEPT WITHIN REACH, ORIENTED TO STAFF AND CALL LIGHT, ALL NEEDS ATTENDED WILL CONTINUE TO MONITOR.REMAINS COMFORTABLE AT THIS TIME. Addendum: 09/01/18 at 0207 by BRADY LONGORIA RN RESIDUALS =0 tolerating feeding well
[2018-08-31] MEDS ORDERED: CLONIDINE HCL 0.1 MG TABLET GT ONE (20:03)
--- NOTE | 2018-08-31 20:03 | NUR ---
EGG SORTER NOTES PATIENT NOTED WITH ELEVATED BLOOD PRESSURE 182/103,91,100& SPO2, NO CHANGE IN LOC CALLED AND SPOKE TO VISH GUERRA MADE AWARE WITH NEW ORDER FOR CLONIDINE 0.1MG X1 NOW ORDER READ BACK , NOTED AND CARRIED OUT WILL CONTINUE TO MONITOR B/P CLOSELY.
--- NOTE | 2018-08-31 21:20 | NUR ---
REGISTRATION SPECIALIST NOTES BLOOD PRESSURE REASSESSED NOTED TRENDING UP 241/100,90 256/110,92 245/112,92 NO CHANGE IN LOC,NO DISTRESS CALL TO NOTIFY VISH, AWAITING CALL BACK. Addendum: 09/01/18 at 0144 by BRADY LONGORIA RN WILL CONTINUE TO MONITOR BP AND PATIENT
[2018-08-31] MEDS ORDERED: LABETALOL HCL IV 100MG VIAL IV ONE (22:00)
[2018-08-31] MEDS: ATORVASTATIN 40 MG TABLET GT SCH (22:04)
--- NOTE | 2018-08-31 22:20 | NUR ---
PHYSICIAN GYNECOLOGIST NOTES SPOKE TO VISH REGARDING PATIENT BP FINDINGS, LAST BP 241/100,90 NO DISTRESS PRESENT, WILL FOLLOW NEW ORDERS PER VISH FOR LABETALOL. AND WHEN STABLE PATIENT IS STILL FOR DISCHARGE. KELLY UPDATED OF PATIENT CONDITION AND CURRENT PLAN OF CARE.
[2018-08-31] MEDS ORDERED: LABETALOL 20 MG/4 ML VIAL ONE (22:29)
--- NOTE | 2018-08-31 22:42 | NUR ---
EFFICIENCY ANALYST NOTES RECEIVED MEDICATION FROM RN SUP WILL GIVE NOW. AND CONTINUE TO MONITOR 175/102,88 NO LOC CHANGES PATIENT REMAINS STABLE
[2018-09-01 00:06] VITALS: BP 138/78
--- NOTE | 2018-09-01 00:15 | NUR ---
SCRAPER OPERATOR CLOSING NOTES PATIENT CLEANSED AND WOUND CARE TO SACRAL PROVIDED AND RIGHT LOWER BUTTOCK DRESSING INTACT, PERINEAL CARE PROVIDED, IV SITE TO RIGHT FA #20G INTACT AND PATENT, NO REDNESS, NO INFILTRATION PRESENT, ID BAND REMOVED. DISCHARGE PAPERS GIVEN TO SAMMI PATIENT SAFELY TRANSFERRED TO [facility], RESPIRATORY THERAPIST ALSO PRESENT FROM [facility] BLOOD PRESSURE WNL AT THIS TIME 138/78,80,11,100% ON VENT , AFEBRILE 97.8 CALLED AND GAVE REPORT TO RAKESH CASTRO AT [facility], AWARE OF PATIENT B/P UPDATE. PATIENT AWAKE ALERT OBTUNDED, OPEN EYES TO NAME, NO CHANGE IN ALOC , REMAINS STABLE, TRANSFERRED IN STABLE IN CONDITION.
== END 2018-09-01 00:15 | DRG 721 ==
LOC: ER 16:46 → TELE 19:50 → MED 08-30 08:47 → TELE 08-30 08:48
PROC: 5A1955Z Respiratory Ventilation, Greater than 96 Consecutive Hours (ICD-10-PCS; principal; 2018-08-26)
PROC: 5A1D70Z Performance of Urinary Filtration, Intermittent, Less than 6 Hours Per Day (ICD-10-PCS; 2018-08-27)
PROC: 5A1D70Z Performance of Urinary Filtration, Intermittent, Less than 6 Hours Per Day (ICD-10-PCS; 2018-08-28)
PROC: 5A1D70Z Performance of Urinary Filtration, Intermittent, Less than 6 Hours Per Day (ICD-10-PCS; 2018-08-31)
DX: T80.211A Bloodstream infection due to central venous catheter, initial encounter (principal); I13.2 Hypertensive heart and chronic kidney disease with heart failure and with stage 5 chronic kidney disease, or end stage renal disease; G93.1 Anoxic brain damage, not elsewhere classified; E43 Unspecified severe protein-calorie malnutrition; Z99.11 Dependence on respirator [ventilator] status; L89.150 Pressure ulcer of sacral region, unstageable; J96.11 Chronic respiratory failure with hypoxia; R53.2 Functional quadriplegia; I95.3 Hypotension of hemodialysis; E11.22 Type 2 diabetes mellitus with diabetic chronic kidney disease; N18.6 End stage renal disease; F09 Unspecified mental disorder due to known physiological condition; Z99.2 Dependence on renal dialysis; J44.9 Chronic obstructive pulmonary disease, unspecified; Z86.73 Personal history of transient ischemic attack (TIA), and cerebral infarction without residual deficits; I25.10 Atherosclerotic heart disease of native coronary artery without angina pectoris; E11.51 Type 2 diabetes mellitus with diabetic peripheral angiopathy without gangrene; G40.909 Epilepsy, unspecified, not intractable, without status epilepticus; Z89.611 Acquired absence of right leg above knee; L89.620 Pressure ulcer of left heel, unstageable; S31.119A Laceration without foreign body of abdominal wall, unspecified quadrant without penetration into peritoneal cavity, initial encounter; R13.10 Dysphagia, unspecified; I48.91 Unspecified atrial fibrillation; I25.2 Old myocardial infarction; D63.1 Anemia in chronic kidney disease; E78.5 Hyperlipidemia, unspecified; E87.6 Hypokalemia; F03.90 Unspecified dementia, unspecified severity, without behavioral disturbance, psychotic disturbance, mood disturbance, and anxiety; I50.9 Heart failure, unspecified; K21.9 Gastro-esophageal reflux disease without esophagitis; Z93.0 Tracheostomy status; Z93.1 Gastrostomy status; E03.9 Hypothyroidism, unspecified
CPT/HCPCS: 31720; 36415; 71045-TC; 80048-TC; 80061-TC; 80076-TC; 80202-TC; 82272-TC; 82962-TC; 83690-TC; 83735-TC; 84100-TC; 84443-TC; 84484-TC; 85025-TC; 87040-TC; 87081-TC; 90935-TC; 94002-TC; 94003-TC; 94760-TC; 94762-TC; A4217; A6253; A6402; A6403; G0378; J1815; J1953; J2543; J3370; J3490; J7030; J7040; J7042; J7060